=== PATIENT | female | born 1995 | race Caucasian/White ===

== ENCOUNTER 2018-07-01 11:26 | Emergency (ER) | payer BC, MEDICAID ==
[2018-07-01 12:07] VITALS: BP 104/68
[2018-07-01] MEDS ORDERED: Fluorescein Sodium TOPICAL* 1 MG TEST STRIP OPHTHALMIC ONE (12:13)
--- NOTE | 2018-07-01 12:14 | UC ---
Eye Complaint HPI - HPI Summary HPI Summary: L EYE REDNESS, IRRITATION AND NOW CRUSTING SINCE YESTERDAY. "PRETTY SURE PINK EYE" 29 WEEKS . WAS WEARING HER CONTACTS AT [facility] BUT HAS SINCE REMOVED THEM AND IS WEARING HER GLASSES. NO EYE PAIN OR PHOTOPHOBIA. + RECENT URI. - History of Current Complaint Chief Complaint: UCEye Stated Complaint: LEFT EYE CONCERN Time Seen by Provider: 07/01/18 12:04 Hx Obtained From: Patient Hx Last Menstrual Period: 2 WKS AGO Onset/Duration: Gradual Onset Timing: Constant Pain Intensity: 0 Aggravating Factor(s): Nothing Associated Signs And Symptoms: Negative: Photophobia, Vision Impairment Bilateral, Fever, Swelling - Risk Factors Penetrating Injury Risk Factor: Negative Acute Glaucoma Risk Factors: Negative Optic Artery Occlusion Risk Factors: Negative - Allergies/Home Medications Allergies/Adverse Reactions: Allergies Allergy/AdvReac Type Severity Reaction Status Date / Time No Known Allergies Allergy Verified 07/01/18 12:03 PMH/Surg Hx/FS Hx/Imm Hx - Additional Past Medical History Additional PMH: 29 WEEKS - Surgical History Surgical History: None - Family History Known Family History: Positive: None - Social History Alcohol Use: None Substance Use Type: None Smoking Status (MU): Never Smoked Tobacco When Did the Patient Quit Smoking/Using Tobacco: 9 MOS AGO - Immunization History Vaccination Up to Date: Yes Review of Systems All Other Systems Reviewed And Are Negative: Yes Eyes: Positive: Drainage, Eye Redness. Negative: Blurred Vision, Diplopia, Photophobia Physical Exam Triage Information Reviewed: Yes Appearance: Well-Appearing Vital Signs: Initial Vital Signs Temp 98.5 F 07/01/18 12:04 Pulse 88 07/01/18 12:04 Resp 16 07/01/18 12:04 BP 104/68 07/01/18 12:04 Pulse Ox 100 07/01/18 12:04 Vital Signs Reviewed: Yes Eyes: Positive: Other: - NO AURICULAR ADENOAPTHY. NO PERIORBITAL EDEMA OR RASH. CONJUNCTIVA R CLEAR/ L RED AND CRUSTING. PERRL, EOMI. AC'S CLEAR. STAIN L EYE , NO UPTAKE. ENT: Positive: Pharynx normal, TMs normal. Negative: Nasal congestion, Nasal drainage Neck: Positive: Supple Respiratory: Positive: Lungs clear Cardiovascular: Positive: RRR Abdomen Description: Positive: Nontender Musculoskeletal: Positive: ROM Intact Neurological: Positive: Alert Psychological: Positive: Age Appropriate Behavior Skin Exam: Normal Eye Complaint Course/Dx - Course Course Of Treatment: SINCE NO CONCERN FOR CORNEAL ULCERS, WILL TX WITH ERYTHROMYCIN OINTMENT AND AVOID THE BROADER ANTIBIOTICS BECAUSE THE PT IS . CORRECTIVE GLASSES ARE OLD, PT NOTES DOES NEED A NEW PRESCRIPTION. - Differential Dx/Diagnosis Differential Diagnosis/HQI/PQRI: Other - NO CONCERN FOR ULCER, ABRASION, DENDRITES. Provider Diagnosis: Conjunctivitis Discharge - Sign-Out/Discharge Documenting (check all that apply): Patient Departure All imaging exams completed and their final reports reviewed: No Studies - Discharge Plan Condition: Stable Disposition: HOME Prescriptions: Erythromycin OPTH OINT* [Erythromycin 0.5% OPTH OINT*] 1 applic LEFT EYE TID 7 Days #1 ophth.oint Patient Education Materials: Conjunctivitis (ED) Referrals: No Primary Care Phys,NOPCP [Primary Care Provider] - Additional Instructions: FOLLOW UP WITH YOUR EYE CARE PROVIDER AT [facility] IF NOT BETTER WITHIN 5 DAYS OR SOONER IF WORSE. NO CONTACT USE UNTIL CLEARED BY A FOLLOW UP EXAM. DISPOSE OF LAST CONTACTS USED. - Billing Disposition and Condition Condition: STABLE Disposition: Home
== END 2018-07-01 12:45 | disposition home or self-care (01) ==
LOC: UCCORT 11:26
DX: O99.89 Other specified diseases and conditions complicating pregnancy, childbirth and the puerperium (principal); H10.9 Unspecified conjunctivitis; Z3A.29 29 weeks gestation of pregnancy
CPT/HCPCS: 99212; A9270-GY; G0463